=== PATIENT | female | born 1930 | race Caucasian/White ===

== ENCOUNTER 2017-08-20 10:38 | Inpatient (IN) | payer OTHER ==
[~2017-08-20] VITALS: Ht 152.4 cm; Wt 92.4 kg
[2017-08-20 11:07] LABS: HEMATOCRIT 39.3 % (36.0-46.0); HEMOGLOBIN 12.9 G/DL (11.9-15.5); MCH 30.4 PG (29.0-34.0); MCHC 32.8 G/DL (30.0-36.0); MCV 92.7 FL (83-99); PLATELET COUNT 133 K/uL (156-360); RBC DIS.WIDTH-CV 12.8 % (11.8-14.6); RBC DIS.WIDTH-SD 43.2 % (39-53); RED BLOOD COUNT 4.24 M/uL (3.80-5.20); WHITE BLOOD COUNT 5.2 K/uL (4.1-10.2)
[2017-08-20 11:18] LABS: CHLORIDE 101 mEq/L (99-109); POTASSIUM 3.8 mEq/L (3.7-5.4); SODIUM 144 mEq/L (136-147)
[2017-08-20 11:20] LABS: GLUCOSE 148 mg/dL (70-99)
[2017-08-20 11:23] LABS: CREATININE 0.9 mg/dL (0.6-1.3); GFR ESTIMATE (CALCULATED) > 59 mL/min/
[2017-08-20 11:24] LABS: UREA NITROGEN (BUN) 22 mg/dL (9-23)
[2017-08-20 11:27] LABS: TROP-I INTERPRETATION INDETERMINATE; TROPONIN-I 0.49 ng/mL (0.0-0.30)
[2017-08-20 14:02] LABS: PTT 26.8 SEC (25-37)
[2017-08-20 14:37] LABS: HDL CHOLESTEROL 31 MG/DL (Desirable>=50); LDL CHOLESTEROL 46 mg/dL (Desirable<100); NON-HDL CHOLESTEROL 74 mg/dL (Desirable<160); TOTAL CHOLESTEROL 105 mg/dL (Desirable<200); TRIGLYCERIDES 138 MG/DL (Normal: <150)
[2017-08-20] MEDS ORDERED: HYDROCHLOROTH12.5 M3 PO (15:12)
[2017-08-20] MEDS ORDERED: AMARYL4 MG PO (15:12)
[2017-08-20] MEDS ORDERED: TRESIBA FL100 UNIT/1 SC (15:12)
[2017-08-20] MEDS ORDERED: LEVOTHYROXINE100 MCG PO (15:13)
[2017-08-20] MEDS ORDERED: LOTENSIN40 MG PO (15:13)
[2017-08-20] MEDS ORDERED: CARTIA XT240 MG PO (15:14)
[2017-08-20] MEDS ORDERED: LO-DOSE ASPIRIN81 M1 PO (15:15)
[2017-08-20] MEDS ORDERED: PRAVACHOL20 MG PO (15:15)
[2017-08-20] MEDS ORDERED: TYLENOL EXTRA500 MG PO (15:16)
[2017-08-20 18:51] LABS: TROP-I INTERPRETATION INDETERMINATE; TROPONIN-I 0.49 ng/mL (0.0-0.30)
[2017-08-21] VITALS: BP 166/84
[2017-08-21 01:15] LABS: TROP-I INTERPRETATION INDETERMINATE
[2017-08-21 04:36] VITALS: BP 148/74
[2017-08-21 09:00] VITALS: BP 143/64
[2017-08-21 12:00] VITALS: BP 164/64
[2017-08-21 19:34] VITALS: BP 136/66
[2017-08-21 23:06] VITALS: BP 156/78
[2017-08-22] VITALS (7 sets, daily range): BP systolic 125–158; BP diastolic 62–75
[2017-08-22 06:37] LABS: CHLORIDE 99 MEQ/L (99-109); CREATININE 1.1 MG/DL (0.6-1.3); GFR ESTIMATE (CALCULATED) 50 mL/min/; MAGNESIUM 1.3 mg/dl (1.3-2.7); POTASSIUM 3.6 MEQ/L (3.7-5.4); SODIUM 141 MEQ/L (136-147); UREA NITROGEN (BUN) 28 mg/dL (9-23)
[2017-08-22 06:39] LABS: GLUCOSE 400 mg/dL (70-99)
[2017-08-22 07:06] LABS: BASOPHIL (%) 0 % (0-1); EOSINOPHIL (%) 0 % (0-5); HEMATOCRIT 35.1 % (36.0-46.0); HEMOGLOBIN 11.3 G/DL (11.9-15.5); IMMATURE GRANULOCYTE (%) 0.3 % (0.0-0.7); LYMPHOCYTE (%) 8.1 % (15-42); LYMPHOCYTE COUNT 0.5 K/uL (1.0-2.8); MCH 29.6 PG (29.0-34.0); MCHC 32.2 G/DL (30.0-36.0); MCV 91.9 FL (83-99); MONOCYTE (%) 1.7 % (3-12); MONOCYTE COUNT 0.1 K/uL (0-0.8); NEUTROPHIL (%) 89.9 % (45-76); NEUTROPHIL COUNT 5.9 K/uL (1.8-6.4); PLATELET COUNT 148 K/uL (156-360); RBC DIS.WIDTH-CV 12.6 % (11.8-14.6); RED BLOOD COUNT 3.82 M/uL (3.80-5.20); WHITE BLOOD COUNT 6.6 K/uL (4.1-10.2)
[2017-08-22 12:29] LABS: BASE EXCESS 9.8 mEq/L (-3 to +3); BICARBONATE 33.4 mEq/L (22-26); CARBOXY HGB 2.1 % (0-5); METHEMOGLOBIN 1.8 % (0-1.5); PCO2 40 mm Hg (35-45); PO2 56 mm Hg (80-100); pH 7.53 (7.35-7.45)
[2017-08-22 12:30] LABS: COMMENTS - BLOOD GASES A+C+; DEVICE NC; O2 FLOW 5 L/MIN; SITE LR; TOTAL RESP RATE 18 resp/min
[2017-08-23] VITALS: BP 165/86
[2017-08-23 04:00] VITALS: BP 136/72
[2017-08-23 06:44] LABS: HEMATOCRIT 35.1 % (36.0-46.0); HEMOGLOBIN 11.3 G/DL (11.9-15.5); MCH 29.5 PG (29.0-34.0); MCHC 32.2 G/DL (30.0-36.0); MCV 91.6 FL (83-99); PLATELET COUNT 192 K/uL (156-360); RBC DIS.WIDTH-CV 12.9 % (11.8-14.6); RBC DIS.WIDTH-SD 42.8 % (39-53); RED BLOOD COUNT 3.83 M/uL (3.80-5.20); WHITE BLOOD COUNT 13.2 K/uL (4.1-10.2)
[2017-08-23 07:25] LABS: CHLORIDE 99 MEQ/L (99-109); CREATININE 1.2 MG/DL (0.6-1.3); GFR ESTIMATE (CALCULATED) 45 mL/min/; POTASSIUM 3.8 MEQ/L (3.7-5.4); SODIUM 141 MEQ/L (136-147); UREA NITROGEN (BUN) 33 mg/dL (9-23)
[2017-08-23 07:31] LABS: GLUCOSE 489 mg/dL (70-99)
[2017-08-23 07:58] VITALS: BP 126/56
[2017-08-23 11:19] VITALS: BP 108/52
[2017-08-23 15:21] VITALS: BP 136/60
[2017-08-23 20:54] VITALS: BP 158/58
[2017-08-24] VITALS (7 sets, daily range): BP systolic 124–146; BP diastolic 58–78
[2017-08-24 07:11] LABS: CHLORIDE 102 MEQ/L (99-109); CREATININE 1.2 MG/DL (0.6-1.3); GFR ESTIMATE (CALCULATED) 45 mL/min/; POTASSIUM 3.8 MEQ/L (3.7-5.4); SODIUM 145 MEQ/L (136-147); UREA NITROGEN (BUN) 36 mg/dL (9-23)
[2017-08-24 07:19] LABS: GLUCOSE 402 mg/dL (70-99)
[2017-08-25 03:57] VITALS: BP 124/68
[2017-08-25 06:39] LABS: CHLORIDE 101 MEQ/L (99-109); POTASSIUM 3.2 MEQ/L (3.7-5.4); SODIUM 141 MEQ/L (136-147)
[2017-08-25 06:44] LABS: CREATININE 1.2 MG/DL (0.6-1.3); GFR ESTIMATE (CALCULATED) 45 mL/min/; GLUCOSE 346 mg/dL (70-99); HEMATOCRIT 38.6 % (36.0-46.0); HEMOGLOBIN 12.7 G/DL (11.9-15.5); MCH 29.9 PG (29.0-34.0); MCHC 32.9 G/DL (30.0-36.0); MCV 90.8 FL (83-99); PLATELET COUNT 228 K/uL (156-360); RBC DIS.WIDTH-CV 12.9 % (11.8-14.6); RBC DIS.WIDTH-SD 42.5 % (39-53); RED BLOOD COUNT 4.25 M/uL (3.80-5.20); UREA NITROGEN (BUN) 40 mg/dL (9-23); WHITE BLOOD COUNT 14.7 K/uL (4.1-10.2)
[2017-08-25 06:52] LABS: HEMOGLOBIN A1c (GLYCOHEMOGLOB) 7.7 % HGB (Below 5.7)
[2017-08-25 08:12] VITALS: BP 124/78
[2017-08-25 13:55] LABS: GLUCOSE 419 mg/dL (70-99)
[2017-08-25 14:06] VITALS: BP 128/74
[2017-08-25 17:01] VITALS: BP 122/60
[2017-08-25 20:14] VITALS: BP 146/72
[2017-08-26] VITALS: BP 132/68
[2017-08-26 03:40] VITALS: BP 128/64
[2017-08-26 06:30] LABS: CHLORIDE 104 MEQ/L (99-109); CREATININE 1.2 MG/DL (0.6-1.3); GFR ESTIMATE (CALCULATED) 45 mL/min/; GLUCOSE 239 mg/dL (70-99); POTASSIUM 3.8 MEQ/L (3.7-5.4); SODIUM 142 MEQ/L (136-147); UREA NITROGEN (BUN) 43 mg/dL (9-23)
[2017-08-26 08:00] VITALS: BP 110/62
[2017-08-26 12:32] VITALS: BP 118/60
[2017-08-26 16:00] VITALS: BP 110/62
[2017-08-26 19:55] VITALS: BP 112/60
[2017-08-27 00:05] VITALS: BP 154/76
[2017-08-27 04:44] VITALS: BP 128/70
[2017-08-27 08:10] VITALS: BP 122/74
[2017-08-27] MEDS ORDERED: ADVAIR HFA120 INHALA IH (09:23)
[2017-08-27] MEDS ORDERED: PREDNISONE10 MG PO (09:29)
[2017-08-27] MEDS ORDERED: PROAIR HFA8.5 GM IH (09:29)
[2017-08-27 10:10] LABS: HEMATOCRIT 37.3 % (36.0-46.0); HEMOGLOBIN 12.2 G/DL (11.9-15.5); MCH 29.6 PG (29.0-34.0); MCHC 32.7 G/DL (30.0-36.0); MCV 90.5 FL (83-99); PLATELET COUNT 213 K/uL (156-360); RBC DIS.WIDTH-CV 12.7 % (11.8-14.6); RED BLOOD COUNT 4.12 M/uL (3.80-5.20); WHITE BLOOD COUNT 9.6 K/uL (4.1-10.2)
[2017-08-27 12:52] VITALS: BP 124/76
== END 2017-08-27 16:36 | disposition home health service (06) | DRG 189 ==
LOC: EME 10:38 → EDOF 13:06 → 4SOUTH 13:06 → ENRESERV 13:12 → EDOF 13:56 → ENRESERV 21:45 → 4EAST 23:52 → ENRESERV 08-22 17:55 → 4SOUTH 08-22 22:23
PROVIDERS: Emergency Medicine; Family Medicine; Internal Medicine
DX: J96.01 Acute respiratory failure with hypoxia (principal); J44.0 Chronic obstructive pulmonary disease with (acute) lower respiratory infection; E11.65 Type 2 diabetes mellitus with hyperglycemia; J20.9 Acute bronchitis, unspecified; I27.20 Pulmonary hypertension, unspecified; D69.6 Thrombocytopenia, unspecified; E03.9 Hypothyroidism, unspecified; E66.01 Morbid (severe) obesity due to excess calories; E78.5 Hyperlipidemia, unspecified; K86.3 Pseudocyst of pancreas; Z68.39 Body mass index [BMI] 39.0-39.9, adult; I10 Essential (primary) hypertension; M71.21 Synovial cyst of popliteal space [Baker], right knee; J45.901 Unspecified asthma with (acute) exacerbation; I24.8 Other forms of acute ischemic heart disease; Z79.4 Long term (current) use of insulin; G47.30 Sleep apnea, unspecified
CPT/HCPCS: 36600; 71045; 71250; 80048; 80061; 82803; 82948; 83036; 83735; 84484; 84999; 85025; 85027; 85379; 85610; 85730; 93005; 93306; 93970; 94010; 94640; 94640 76; 94760; 94799; 99202; 99281; 99285; J0696; J1644; J1815; J1940; J2920; J2930